=== PATIENT | female | born 1995 | race African-American/Black ===

== ENCOUNTER 2022-08-01 13:37 | Emergency (ER) | payer MEDICAID, OTHER ==
[~2022-08-01] VITALS: Ht 162.6 cm; Wt 111.6 kg
[2022-08-01 13:57] VITALS: BP 125/78
--- NOTE | 2022-08-01 14:03 | NUR ---
PT AMBULATED TO BED 5
--- NOTE | 2022-08-01 14:45 | NUR ---
27YO FEMALE PT C/O CRAMPING 6/10 LOWER ABDOMINAL PAIN X5DAYS. STATES RADIATION TO LOWER BACK. DENIES VAGINAL BLEEDING OR DISCHARGE BUT NOTES "FISH SMELL". LMP Jun. ABDOMEN NON DISTENED OR TENDER. NO VISIBLE INJURY NOTED IN BACK. DENIES N/V/D ,CHEST PAIN, SOB , FEVER OR CHILLS. PT AAOX4, NO VISIBLE DISTRESS. RESPIRATIONS EVEN AND UNLABORED. HOB POSITIONED PER COMFORT. HX:DENIES NKA
--- NOTE | 2022-08-01 14:55 | NUR ---
Female Clinical Systems Educator accompanied female patient for Pelvic Exam.
[2022-08-01] MEDS ORDERED: CLIN300C2 PO (15:52)
[2022-08-01 16:10] VITALS: BP 120/64
--- NOTE | 2022-08-01 16:10 | NUR ---
Patient discharged with v/s stable. Written and verbal after care instructions FOR VAGINAL FOREIGN BODY given and explained. Patient alert, oriented and verbalized understanding of instructions. Ambulatory with steady gait. All questions addressed prior to discharge. ID band removed. Patient advised to follow up with PMD. Rx of CLEOCIN HCL given. Opportunity to ask questions provided and answered.
--- NOTE | 2022-08-01 16:10 | NUR ---
The patient's care was reviewed and supervised by Hui Herr RN.
== END 2022-08-01 16:10 | disposition home or self-care (01) ==
LOC: MED 13:37
DX: T19.2XXA Foreign body in vulva and vagina, initial encounter (principal); Z79.899 Other long term (current) drug therapy; Z98.890 Other specified postprocedural states; X58.XXXA Exposure to other specified factors, initial encounter; Y92.89 Other specified places as the place of occurrence of the external cause; Y93.89 Activity, other specified; Y99.8 Other external cause status
CPT/HCPCS: 81002; 81025; 87070; 87210; 87491; 99284

== ENCOUNTER 2023-01-21 18:59 | Emergency (ER) | payer OTHER ==
[~2023-01-21] VITALS: Ht 165.1 cm; Wt 104.3 kg
[~2023-01-21 18:59] MED LIST: CLIN300C2 PO
[2023-01-21 19:25] VITALS: BP 120/73
--- NOTE | 2023-01-21 19:25 | NUR ---
TO LOBBY A/W BED AMBULATORY
--- NOTE | 2023-01-21 21:41 | NUR ---
PT LWBS PER ERMD
== END 2023-01-21 21:41 | disposition left against medical advice (07) ==
LOC: MED 18:59
DX: M79.10 Myalgia, unspecified site (principal); Z53.21 Procedure and treatment not carried out due to patient leaving prior to being seen by health care provider
CPT/HCPCS: 99281